=== PATIENT | female | born 1955 | race Caucasian/White ===

== ENCOUNTER 2020-04-09 18:54 | Emergency (ER) | payer OTHER, MEDICARE ==
[2020-04-09 19:08] VITALS: RESP 18
--- NOTE | 2020-04-09 20:12 | CT ---
EXAMINATION TYPE: CT brain erma smith con DATE OF EXAM: 04/09/2020 COMPARISON: None HISTORY: Fall injury CT DLP: 1529.8 mGycm Automated exposure control for dose reduction was used. There is scalp soft tissue swelling over the left lateral frontal bone measuring up to 1 cm in thickn ess. The ventricles show normal size. There is mild cerebral atrophy. There is no midline shift. Ther e is no sign of intracranial hemorrhage. The calvarium is intact. There is normal aeration of the temporal bones. Cervical vertebra have normal alignment. Disc spaces are normal. There is posterior C5-6 cervical disc herniation in the midline. Facet joints are intact. IMPRESSION: Left frontal scalp hematoma. No acute intracranial abnormality. There is moderate-sized posterior disc herniation at C5-6. No fracture seen.
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
--- NOTE | 2020-04-09 20:45 | XR ---
EXAMINATION TYPE: XR chest 2V DATE OF EXAM: 04/09/2020 COMPARISON: NONE HISTORY: Chest pain TECHNIQUE: 2 views FINDINGS: Heart and mediastinum are normal. Lungs are clear. Diaphragm is normal. Bony thorax appears normal. Thoracic aorta is atheromatous. IMPRESSION: No active cardiopulmonary disease. Normal heart.
--- NOTE | 2020-04-09 20:46 | XR ---
EXAMINATION TYPE: XR clavicle LT DATE OF EXAM: 04/09/2020 COMPARISON: NONE HISTORY: Pain TECHNIQUE: 2 views FINDINGS: There is spurring at the AC joint. I see no fracture nor dislocation. Glenohumeral joint is intact. The clavicle is intact. IMPRESSION: Mild spurring. No fracture seen.
--- NOTE | 2020-04-09 20:51 | XR ---
EXAMINATION TYPE: XR tibia fibula RT DATE OF EXAM: 04/09/2020 COMPARISON: NONE HISTORY: Leg pain TECHNIQUE: 3 views FINDINGS: Tibia and fibula appear intact. I see no fracture nor dislocation. Knee joint and ankle chandrakant nt appear intact. There is small Achilles calcaneal spur. IMPRESSION: No acute abnormality of the right tibia and fibula.
[2020-04-09 21:05] VITALS: BP 158/77; PULSE 89; TEMP 98.4
== END 2020-04-09 21:05 | disposition home or self-care (01) ==
LOC: EC 18:54
DX: S00.93XA Contusion of unspecified part of head, initial encounter (principal); S16.1XXA Strain of muscle, fascia and tendon at neck level, initial encounter; S80.10XA Contusion of unspecified lower leg, initial encounter; E11.9 Type 2 diabetes mellitus without complications; I10 Essential (primary) hypertension; V89.2XXA Person injured in unspecified motor-vehicle accident, traffic, initial encounter; Y92.410 Unspecified street and highway as the place of occurrence of the external cause
CPT/HCPCS: 70450; 71046; 72125; 99285